=== PATIENT | male | born 1970 | race Caucasian/White ===

== ENCOUNTER 2018-09-06 16:26 | Emergency (ER) | END 2018-09-06 17:40 | disposition home or self-care (01) ==

== ENCOUNTER 2018-09-09 11:53 | Emergency (ER) | END 2018-09-09 14:51 | disposition home or self-care (01) ==

== ENCOUNTER 2018-09-16 07:05 | Emergency (ER) | END 2018-09-16 07:30 | disposition home or self-care (01) ==

== ENCOUNTER 2018-11-03 10:49 | Emergency (ER) | END 2018-11-03 13:31 | disposition home or self-care (01) ==